=== PATIENT | female | born 1935 | race Caucasian/White ===

== ENCOUNTER 2016-07-08 03:59 | Emergency (ER) | payer MEDICAID, MEDICARE ==
[~2016-07-08] VITALS: Ht 152.4 cm; Wt 66.0 kg
[2016-07-08 04:37] LABS: EOSINOPHILS % (AUTO) 0.6 % (1.0-6.0); HEMATOCRIT 42.1 % (36-46); HEMOGLOBIN 13.4 g/dL (12.0-16.0); LYMPHOCYTES # (AUTO) 0.2 K/uL (1.0-4.8); LYMPHOCYTES % (AUTO) 3.7 % (22.0-44.0); MEAN CORPUSCULAR HEMOGLOBIN 27.4 pg (26.0-34.0); MEAN CORPUSCULAR HGB CONC 31.7 G/dL (31.0-37.0); MEAN CORPUSCULAR VOLUME 86 fL (80-100); MONOCYTES % (AUTO) 0.2 % (2.0-9.0); NEUTROPHILS # (AUTO) 5.8 K/uL (1.8-7.7); PLATELET COUNT (AUTO) 265 K/uL (150-450); RED BLOOD CELL COUNT(AUTO) 4.87 MIL/uL (4.00-5.20); RED CELL DISTRIBUTION WIDTH 14.6 % (11.5-14.5); WHITE BLOOD COUNT (AUTO) 6.1 K/uL (4.5-11.0)
[2016-07-08 04:40] LABS: NEUTROPHILS % (AUTO) 95.5 % (40.0-70.0)
[2016-07-08 04:52] LABS: CALCIUM, TOTAL 8.7 mg/dL (8.8-10.5); CREATININE 1.01 mg/dL (0.60-1.30); POTASSIUM 3.9 mmol/L (3.5-5.1)
[2016-07-08 04:57] LABS: ALBUMIN 3.8 g/dL (3.4-5.0); BILIRUBIN,TOTAL 3.7 mg/dL (0.1-1.0); TOTAL PROTEIN, SERUM 7.5 g/dL (6.4-8.2)
[2016-07-08] MEDS ORDERED: SODIUM CHLORIDE 0.9% 1,000 ML IV ONE (05:00)
[2016-07-08] MEDS ORDERED: ACETAMINOPHEN 1000 MG/ISO-OSM 100 ML IV ONE (05:00)
[2016-07-08] MEDS: PIPERACILLIN/TAZO 3.375 GM/D5W 50 ML IV ONE ×2 (05:18→06:02)
[2016-07-08 05:30] LABS: APPEARANCE,URINE CLOUDY (CLEAR); GLUCOSE, URINE (UA) NEGATIVE (NEGATIVE); KETONES,URINE 15 mg/dL (NEGATIVE); LEUKOCYTE ESTERASE ,URINE LARGE (NEGATIVE); OCCULT BLOOD,URINE SMALL (NEGATIVE); PROTEIN,URINE NEGATIVE (NEGATIVE)
[2016-07-08 05:35] LABS: ADD UA MICROSCOPIC YES
[2016-07-08 05:48] LABS: SQUAMOUS EPITHELIAL CELL,UR Moderate /LPF (None Seen); WBC,URINE 26-50 /HPF (0-5)
[2016-07-08 07:55] LABS: PROCALCITONIN (PCT) 4.57 ng/mL (<0.50)
[2016-07-08 09:07] VITALS: BP 87/48
== END 2016-07-08 09:48 | disposition short-term general hospital (02) ==
LOC: EMS 04:01
DX: K80.50 Calculus of bile duct without cholangitis or cholecystitis without obstruction (principal); N39.0 Urinary tract infection, site not specified; I10 Essential (primary) hypertension
CPT/HCPCS: 36415; 71010; 76700; 80053; 81001; 83605; 83690; 84145; 84484; 85025; 87040; 87077; 87086; 93005; 96361; 96365; 96375; 99285; J0131; J2543; J7030